=== PATIENT | female | born 1995 ===

== ENCOUNTER 2018-05-12 10:07 | Day surgery (SDC) | payer SELFPAY ==
[2018-05-12 10:57] VITALS: BMI 24.7
[2018-05-12 10:58] VITALS: BP 112/70; TEMP 98.7
--- NOTE | 2018-05-12 12:35 | PRG ---
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 CHIEF COMPLAINT: Vaginal spotting. HISTORY OF PRESENT ILLNESS: The patient is a 23-year-old, G2, P1 female with an intrauterine at 24 weeks and 3 days, who is presenting to Labor and Delivery today with complaints of spotting when she wipes. The patient denies any persistent bleeding. Denies any staining of her pads. Reports intercourse about 3 days ago, but denies any other change in discharge or falls, bleeding, infection, nausea, vomiting, or diarrhea. She has had problems with constipation. Denies any new rashes, hip problems, knee problems, muscle weakness. Denies urinary urgency or frequency. PAST MEDICAL HISTORY: Negative. PAST SURGICAL HISTORY: Negative. ALLERGIES: AMOXICILLIN. MEDICATIONS: vitamins. SOCIAL HISTORY: Denies drug, alcohol, tobacco use. LABORATORY DATA: OB labs are unavailable at the time of dictation. REVIEW OF SYSTEMS: Per HPI. PHYSICAL EXAMINATION: VITAL SIGNS: Blood pressure is 112/70, heart rate of 84, respiratory rate 18, saturating 99% on room air, and temperature 98.7. GENERAL: She appears to be in no acute distress. She is alert, oriented, cooperative, and pleasant to interact with. HEAD: Normocephalic and atraumatic. LUNGS: Clear to auscultation bilaterally. HEART: Has regular rate and rhythm. ABDOMEN: Soft and gravid. Nontender. EXTREMITIES: Nontender and nonedematous. Vulva without mass, lesions, or erythema. No blood staining. Her introitus also did not show any evidence of staining of blood. Her discharge appears to be normal, though a little more abundant than expected. Cervix is visibly closed in full. There appears to be no blood in the vestibular regions. heart tracing shows that the fetus with a baseline in the 150s with moderate long-term variability and appropriate for 24 weeks gestation. BP-3 is pending. ASSESSMENT AND PLAN: The patient is a 23-year-old female with an intrauterine at 24 weeks and 3 days, who presented with isolated spotting when she wiped and was concerned enough to come for evaluation. [place] and was instructed by her nurse on-call to come, get seen. The patient has no evidence of labor or dilating cervix. Her discharge appears a little bit more than expected and BP-3 is pending for results. Fetus has a category 1 tracing and appropriate for gestational age. The patient is being discharged to home with precautions. She has been asked to call back in about an hour to two hours, so that she can get the results of her BP-3. Otherwise, the patient is counseled to keep her appointment with her primary OB as scheduled. The patient will be counseled on driving precautions, as she has driven from the [facility] to [place], and will be reviewing with her the necessity to take frequent stops to stretch her legs and reduce her chances of blood loss. Job ID: [id number]
== END 2018-05-12 11:36 | disposition home or self-care (01) ==
LOC: L&D/OP 10:07
PROVIDERS: ATTEND Obstetrics & Gynecology
DX: O26.852 Spotting complicating pregnancy, second trimester (principal); Z3A.24 24 weeks gestation of pregnancy; Z79.899 Other long term (current) drug therapy; Z88.0 Allergy status to penicillin
CPT/HCPCS: 87480; 87510; 87660